=== PATIENT | male | born 1975 | race Caucasian/White ===

== ENCOUNTER 2017-05-06 03:34 | Inpatient (IN) | payer MEDICAID, OTHER ==
[~2017-05-06] VITALS: Ht 170.2 cm; Wt 91.1 kg
[~2017-05-06 03:34] MED LIST: CITA40TA12 PO; DISU250T2 PO; HYDR25CA PO; ONDA4TAB10 PO; PANT40TA3 PO; TOPI25TA32 PO
[2017-05-06 04:49] LABS: BASOPHILS # (AUTO) 0.03 x10^3/uL (0-0.1); BASOPHILS % (AUTO) 1 % (0-1); EOSINOPHILS # (AUTO) 0.01 x10^3/uL (0-0.4); EOSINOPHILS % (AUTO) 0 % (1-7); LYMPHOCYTES % (AUTO) 46 % (22-44); MD NO; MEAN CORPUSCULAR HEMOGLOBIN 33.4 pg (27.5-34.5); MEAN CORPUSCULAR HGB CONC 34.6 g/dL (33.2-36.2); MEAN CORPUSCULAR VOLUME 96.7 fL (81-97); MEAN PLATELET VOLUME 6.7 fL (7.4-10.4); MONOCYTES # (AUTO) 0.58 x10^3/uL (0.2-0.8); MONOCYTES % (AUTO) 15 % (2-9); NEUTROPHILS # (AUTO) 1.48 x10^3/uL (1.8-6.8); NEUTROPHILS % (AUTO) 38 % (42-75); PLATELET COUNT 197 x10^3/uL (130-400); RED BLOOD COUNT 5.09 x10^6/uL (4.38-5.82)
[2017-05-06 04:59] LABS: ALBUMIN 3.2 g/dL (3.4-5.0); ANION GAP 10 mmol/L (5-15); CALCIUM 7.7 mg/dL (8.5-10.1); CHLORIDE 108 mmol/L (98-107)
[2017-05-06] MEDS ORDERED: LORazepam 2 MG/ML, 1ML IVPush ONE ×2 (05:00)
[2017-05-06] MEDS ORDERED: LORazepam 2 MG/ML, 1ML ONE ×3 (05:01→10:16)
[2017-05-06 05:06] LABS: ACETAMINOPHEN < 2 mcg/mL (10-30); ALANINE AMINOTRANSFERASE 66 U/L (12-78); ALKALINE PHOSPHATASE 98 U/L (45-117); BILIRUBIN,TOTAL 0.4 mg/dL (0.2-1.0); CREATININE 0.75 mg/dL (0.7-1.3); SALICYLATE LEVEL < 1.7 mg/dL (2.8-20.0); TOTAL PROTEIN 7.3 g/dL (6.4-8.2); TROPONIN I < 0.015 ng/mL (0.000-0.045)
[2017-05-06 05:10] LABS: AMPHETAMINE SCREEN, URINE Negative (Negative); BARBITURATE SCREEN, URINE Negative (Negative); BENZODIAZEPINE SCREEN, URINE Negative (Negative); CANNABINOID SCREEN, URINE Negative (Negative); COCAINE SCREEN, URINE Negative (Negative); METHADONE SCREEN, URINE Negative (Negative); OPIATE SCREEN, URINE Negative (Negative)
[2017-05-06] MEDS ORDERED: ONDANSETRON ODT 4 MG ONE (08:46)
[2017-05-06] MEDS ORDERED: ONDANSETRON ODT 4 MG PO ONE (09:00)
[2017-05-06] MEDS ORDERED: THIAMINE 100MG TABLET ONE (09:17)
[2017-05-06] MEDS ORDERED: LORazepam 2 MG/ML, 1ML IVPush PRN (09:30)
[2017-05-06] MEDS ORDERED: THIAMINE 100MG TABLET PO ONE (09:30)
[2017-05-06] MEDS ORDERED: SODIUM CHLORIDE 0.9% 1,000 ML IV ONE (10:00)
[2017-05-06] MEDS ORDERED: SODIUM CHLORIDE 0.9% 1,000ML IVBOLUS ONE (10:00)
[2017-05-06] MEDS ORDERED: POLYETHYLENE GLYCOL 17 GM PACKET PO PRN (10:30)
[2017-05-06] MEDS ORDERED: BISACODYL 10 MG SUPP PR PRN (10:30)
[2017-05-06] MEDS ORDERED: ONDANSETRON 2MG/ML, 2ML IVPush PRN (10:30)
[2017-05-06] MEDS: MULTIVITAMIN 1 TABLET PO SCH (11:00)
[2017-05-06 12:47] VITALS: BP 157/108
[2017-05-06] MEDS: LORazepam 2 MG/ML, 1ML IVPush PRN ×3 (13:11→21:23)
[2017-05-06] MEDS: ENOXAPARIN 40 MG/0.4 ML SQ SCH (13:57)
[2017-05-06] MEDS: FOLIC ACID 1 MG TABLET PO SCH (13:57)
[2017-05-06] MEDS: NS + 20MEQ KCL 1,000 ML IV SCH (13:57)
[2017-05-06] MEDS: NICOTINE 14MG/24 HR PATCH.TD24 TD SCH (13:57)
[2017-05-06] MEDS: THIAMINE 100MG TABLET PO SCH (13:58)
[2017-05-06 14:00] VITALS: BP 167/107
[2017-05-06] MEDS: BACLOFEN 10 MG TABLET PO SCH ×2 (16:16→21:15)
[2017-05-06 18:58] VITALS: BP 170/109
[2017-05-06] MEDS ORDERED: DOCUSATE 100 MG CAPSULE PO PRN (21:00)
[2017-05-06] MEDS: TOPIRAMATE 25 MG TABLET PO SCH (21:15)
[2017-05-06 23:00] VITALS: BP 174/108
[2017-05-06] MEDS: LABETALOL 5MG/ML, 20ML IVPush PRN (23:10)
[2017-05-07] MEDS: NS + 20MEQ KCL 1,000 ML IV SCH (02:07)
[2017-05-07] MEDS: LORazepam 2 MG/ML, 1ML IVPush PRN ×5 (02:22→22:05)
[2017-05-07 03:00] VITALS: BP 176/104
[2017-05-07 05:17] LABS: BASOPHILS # (AUTO) 0.02 x10^3/uL (0-0.1); BASOPHILS % (AUTO) 1 % (0-1); EOSINOPHILS # (AUTO) 0.02 x10^3/uL (0-0.4); EOSINOPHILS % (AUTO) 1 % (1-7); LYMPHOCYTES # (AUTO) 1.65 x10^3/uL (1-3.4); LYMPHOCYTES % (AUTO) 45 % (22-44); MD NO; MEAN CORPUSCULAR HEMOGLOBIN 33.2 pg (27.5-34.5); MEAN CORPUSCULAR HGB CONC 34.3 g/dL (33.2-36.2); MEAN CORPUSCULAR VOLUME 96.7 fL (81-97); MEAN PLATELET VOLUME 7.2 fL (7.4-10.4); MONOCYTES # (AUTO) 0.58 x10^3/uL (0.2-0.8); MONOCYTES % (AUTO) 16 % (2-9); NEUTROPHILS % (AUTO) 38 % (42-75); PLATELET COUNT 155 x10^3/uL (130-400); RED BLOOD COUNT 4.39 x10^6/uL (4.38-5.82); RED CELL DISTRIBUTION WIDTH 14.7 % (9.4-14.8)
[2017-05-07 05:21] LABS: CHLORIDE 106 mmol/L (98-107)
[2017-05-07 05:30] LABS: ALANINE AMINOTRANSFERASE 82 U/L (12-78); ALKALINE PHOSPHATASE 95 U/L (45-117); ANION GAP 8 mmol/L (5-15); BILIRUBIN,TOTAL 1.5 mg/dL (0.2-1.0); CALCIUM 8.5 mg/dL (8.5-10.1); CREATININE 0.75 mg/dL (0.7-1.3); TOTAL PROTEIN 6.7 g/dL (6.4-8.2)
[2017-05-07 05:51] VITALS: BP 150/99
[2017-05-07 08:29] VITALS: BP 171/109
[2017-05-07] MEDS: MULTIVITAMIN 1 TABLET PO SCH (08:35)
[2017-05-07] MEDS: CITALOPRAM 20 MG TABLET PO SCH (08:35)
[2017-05-07] MEDS: LABETALOL 5MG/ML, 20ML IVPush PRN (08:35)
[2017-05-07] MEDS: TOPIRAMATE 25 MG TABLET PO SCH ×2 (08:35→20:20)
[2017-05-07] MEDS: BACLOFEN 10 MG TABLET PO SCH ×3 (08:36→20:20)
[2017-05-07] MEDS: FOLIC ACID 1 MG TABLET PO SCH (08:36)
[2017-05-07] MEDS: THIAMINE 100MG TABLET PO SCH (10:27)
[2017-05-07] MEDS: NICOTINE 14MG/24 HR PATCH.TD24 TD SCH (15:04)
[2017-05-07] MEDS: ENOXAPARIN 40 MG/0.4 ML SQ SCH (15:04)
[2017-05-07 15:54] VITALS: BP 157/103
[2017-05-07 19:46] VITALS: BP 169/110
[2017-05-07] MEDS: ACETAMINOPHEN 325 MG TABLET PO PRN (20:32)
[2017-05-08 00:29] VITALS: BP 141/101
[2017-05-08] MEDS: LORazepam 2 MG/ML, 1ML IVPush PRN (03:32)
[2017-05-08 05:48] LABS: ALANINE AMINOTRANSFERASE 69 U/L (12-78); ALBUMIN 3.1 g/dL (3.4-5.0); ANION GAP 8 mmol/L (5-15); CALCIUM 8.4 mg/dL (8.5-10.1); CHLORIDE 107 mmol/L (98-107); CREATININE 0.67 mg/dL (0.7-1.3)
[2017-05-08 05:50] LABS: ALKALINE PHOSPHATASE 95 U/L (45-117); BILIRUBIN,TOTAL 0.8 mg/dL (0.2-1.0); TOTAL PROTEIN 6.7 g/dL (6.4-8.2)
[2017-05-08] MEDS: FOLIC ACID 1 MG TABLET PO SCH (07:37)
[2017-05-08] MEDS: CITALOPRAM 20 MG TABLET PO SCH (07:37)
[2017-05-08] MEDS: TOPIRAMATE 25 MG TABLET PO SCH ×2 (07:37→20:20)
[2017-05-08] MEDS: THIAMINE 100MG TABLET PO SCH (07:37)
[2017-05-08] MEDS: MULTIVITAMIN 1 TABLET PO SCH (07:37)
[2017-05-08] MEDS: BACLOFEN 10 MG TABLET PO SCH ×3 (07:37→20:20)
[2017-05-08 07:48] VITALS: BP 156/105
[2017-05-08] MEDS: LABETALOL 5MG/ML, 20ML IVPush PRN (07:58)
[2017-05-08 09:29] VITALS: BP 148/99
[2017-05-08] MEDS ORDERED: ONDANSETRON 4 MG TABLET PO PRN (09:30)
[2017-05-08] MEDS: NICOTINE 14MG/24 HR PATCH.TD24 TD SCH (13:32)
[2017-05-08] MEDS: ENOXAPARIN 40 MG/0.4 ML SQ SCH (13:32)
[2017-05-08] MEDS: LORazepam 1MG TABLET PO PRN (13:33)
[2017-05-08 14:52] VITALS: BP 130/93
[2017-05-08 18:53] VITALS: BP 148/94
[2017-05-09 04:07] VITALS: BP 142/93
[2017-05-09 07:52] VITALS: BP 136/91
[2017-05-09] MEDS: FOLIC ACID 1 MG TABLET PO SCH (09:49)
[2017-05-09] MEDS: TOPIRAMATE 25 MG TABLET PO SCH ×2 (09:49→20:49)
[2017-05-09] MEDS: THIAMINE 100MG TABLET PO SCH (09:49)
[2017-05-09] MEDS: CITALOPRAM 20 MG TABLET PO SCH (09:49)
[2017-05-09] MEDS: MULTIVITAMIN 1 TABLET PO SCH (09:49)
[2017-05-09] MEDS: BACLOFEN 10 MG TABLET PO SCH ×3 (09:49→20:49)
[2017-05-09 12:09] VITALS: BP 143/95
[2017-05-09] MEDS: ENOXAPARIN 40 MG/0.4 ML SQ SCH (14:39)
[2017-05-09] MEDS: NICOTINE 14MG/24 HR PATCH.TD24 TD SCH (14:40)
[2017-05-09] MEDS: LORazepam 1MG TABLET PO PRN ×2 (14:59→20:58)
[2017-05-09 18:48] VITALS: BP 135/98
[2017-05-09] MEDS: ACETAMINOPHEN 325 MG TABLET PO PRN (20:57)
[2017-05-10 02:26] VITALS: BP 132/91
[2017-05-10 06:30] VITALS: BP 125/88
[2017-05-10] MEDS: TOPIRAMATE 25 MG TABLET PO SCH ×2 (09:14→20:08)
[2017-05-10] MEDS: BACLOFEN 10 MG TABLET PO SCH ×3 (09:14→20:08)
[2017-05-10] MEDS: FOLIC ACID 1 MG TABLET PO SCH (09:14)
[2017-05-10] MEDS: MULTIVITAMIN 1 TABLET PO SCH (09:14)
[2017-05-10] MEDS: LORazepam 1MG TABLET PO PRN ×2 (09:14→11:37)
[2017-05-10] MEDS: THIAMINE 100MG TABLET PO SCH (09:14)
[2017-05-10] MEDS: CITALOPRAM 20 MG TABLET PO SCH (09:14)
[2017-05-10 10:46] VITALS: BP 129/84
[2017-05-10] MEDS: ENOXAPARIN 40 MG/0.4 ML SQ SCH (12:54)
[2017-05-10] MEDS: NICOTINE 14MG/24 HR PATCH.TD24 TD SCH (15:00)
[2017-05-10 20:00] VITALS: BP 135/92
[2017-05-11 07:39] VITALS: BP 133/83
[2017-05-11] MEDS: THIAMINE 100MG TABLET PO SCH (07:56)
[2017-05-11] MEDS: FOLIC ACID 1 MG TABLET PO SCH (07:56)
[2017-05-11] MEDS: CITALOPRAM 20 MG TABLET PO SCH (07:56)
[2017-05-11] MEDS: MULTIVITAMIN 1 TABLET PO SCH (07:56)
[2017-05-11] MEDS: BACLOFEN 10 MG TABLET PO SCH (07:56)
[2017-05-11] MEDS: TOPIRAMATE 25 MG TABLET PO SCH (07:56)
== END 2017-05-11 11:38 | DRG 895 ==
LOC: ED 07:01 → EDIP 09:45 → 4WST 12:54 → 2N 05-10 10:42
PROVIDERS: ADMIT Family Medicine; ATTEND Family Medicine
PROC: HZ34ZZZ Individual Counseling for Substance Abuse Treatment, Interpersonal (ICD-10-PCS; principal; 2017-05-06)
PROC: HZ2ZZZZ Detoxification Services for Substance Abuse Treatment (ICD-10-PCS; 2017-05-06)
DX: F10.229 Alcohol dependence with intoxication, unspecified (principal); R45.851 Suicidal ideations; E44.0 Moderate protein-calorie malnutrition; F33.0 Major depressive disorder, recurrent, mild; F10.239 Alcohol dependence with withdrawal, unspecified; I10 Essential (primary) hypertension; R07.2 Precordial pain; F19.10 Other psychoactive substance abuse, uncomplicated; F17.210 Nicotine dependence, cigarettes, uncomplicated; R74.0 Nonspecific elevation of levels of transaminase and lactic acid dehydrogenase [LDH]; Y90.8 Blood alcohol level of 240 mg/100 ml or more; Z68.31 Body mass index [BMI] 31.0-31.9, adult
CPT/HCPCS: 36415; 80053; 80307; 80329; 84484; 85025; 93005; 96374; 96376; J1650; J3480; Q0162; G0479; G0480; J2060; J7030; Q0177